=== PATIENT | female | born 1955 | race African-American/Black ===

== ENCOUNTER 2018-02-17 07:34 | Emergency (ER) | payer OTHER ==
[~2018-02-17] VITALS: Ht 172.7 cm; Wt 59.9 kg
[2018-02-17 08:43] VITALS: BP 151/85
== END 2018-02-17 08:20 | disposition home or self-care (01) ==
LOC: ED 07:34
DX: H66.93 Otitis media, unspecified, bilateral (principal); H60.93 Unspecified otitis externa, bilateral